=== PATIENT | male | born 1995 | race Caucasian/White ===

== ENCOUNTER 2019-01-04 17:25 | Emergency (ER) | payer SELFPAY ==
--- NOTE | 2019-01-04 18:06 | EDM.PDOC ---
ED HPI GENERAL MEDICAL PROBLEM - General Chief Complaint: Eye Problems Stated Complaint: METAL IN EYE Time Seen by Provider: 01/04/19 17:28 Source of Information: Reports: Patient History Limitations: Reports: No Limitations - History of Present Illness INITIAL COMMENTS - FREE TEXT/NARRATIVE: HISTORY AND PHYSICAL: History of present illness: Patient is a 23-year-old male who presents to the emergency room with concerns of a foreign body in the left eye. 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 Besides the irritation and discomfort he denies any visual changes.He does not wear contact lenses or corrective glasses. At the time he was not wearing any protective eyewear. Unsure of his last tetanus. Review of systems: As per history of present illness and below otherwise all systems reviewed and negative. Past medical history: As per history of present illness and as reviewed below otherwise noncontributory. Surgical history: As per history of present illness and as reviewed below otherwise noncontributory. Social history: See social history for further information Family history: As per history of present illness and as reviewed below otherwise noncontributory. Physical exam: General: Well-developed and well-nourished 23-year-old male. Alert and oriented. Nontoxic appearing and in no acute distress. HEENT: Atraumatic, normocephalic, pupils equal and reactive bilaterally, negative for conjunctival pallor or scleral icterus, pinpoint foreign body noted to the 5 o'clock position in the left sclera. Fluorescein eye exam shows abrasion to the 4:00 to 6 o'clock position. mucous membranes moist, TMs normal bilaterally, throat clear, neck supple, nontender, trachea midline. No drooling or trismus noted. No meningeal signs. No hot potato voice noted. Lungs: Clear to auscultation, breath sounds equal bilaterally, chest nontender. Heart: S1S2, regular rate and rhythm without overt murmur Abdomen: Soft, nondistended, nontender. Negative for masses or hepatosplenomegaly. Negative for costovertebral tenderness. Pelvis: Stable nontender. Genitourinary: Deferred. Rectal: Deferred. Skin: Intact, warm, dry. No lesions or rashes noted. Extremities: Atraumatic, negative for cords or calf pain. Neurovascular unremarkable. Neuro: Awake, alert, oriented. Cranial nerves II through XII unremarkable. Cerebellum unremarkable. Motor and sensory unremarkable throughout. Exam nonfocal. Notes: Visual acuity and I exam her completed. Patient is agreeable to updating his tetanus. Dr. Fitch, inspector materials and processes on-call at [facility] is agreeable to seeing this patient this evening at 7:[address] Ferrara states he will prescribe antibiotics as indicated after patient evaluation. This information was shared with the patient and is agreeable to plan of care. Supportive care measures were reviewed and discussed. Voices understanding and is agreeable to plan of care. Denies any further questions or concerns at this time. Diagnostics: None Therapeutics: Tdap, Tetracaine Prescription: None Impression: FB of Left Eye Plan: 1. Please go to [facility] to see Dr Ferrara, Opthomologist, across the bypass at [facility]. He will meet you at Door [address]. If for some reason you' re having trouble finding the door or need to contact Dr. fitch, his cell phone number is 2. Dr Ferrara will prescribe your antibiotics after evaluation. 3. Return to the ED as needed and as discussed. Definitive disposition and diagnosis as appropriate pending reevaluation and review of above. Left Eye Pain Score (Numeric/FACES): 2 - Related Data Allergies Allergy/AdvReac Type Severity Reaction Status Date / Time No Known Allergies Allergy Verified 01/04/19 18:01 Home Meds: Home Meds . [No Known Home Meds] 01/04/19 [History] ED ROS GENERAL - Review of Systems Review Of Systems: ROS reveals no pertinent complaints other than HPI. ED EXAM GENERAL W FULL EYE - Physical Exam Exam: See Below (See dictation) Course - Vital Signs Last Recorded V/S: Last Vital Signs Temp 97.1 F 01/04/19 18:02 Pulse 75 01/04/19 18:02 Resp 16 01/04/19 18:02 BP 128/76 01/04/19 18:02 Pulse Ox 96 01/04/19 18:02 - Orders/Labs/Meds Orders: Active Orders 24 hr Category Date Time Status Vaccines to be Administered [RC] PER UNIT ROUTINE Care 01/04/19 18:15 Ordered Meds: Medications Discontinued Medications Generic Name Dose Route Start Last Admin Trade Name Freq PRN Reason Stop Dose Admin Diphtheria/Tetanus/Acell Pertussis 0.5 ml 01/04/19 18:15 Adacel IM 01/04/19 18:16 .ONCE ONE Proparacaine HCl 1 ml 01/04/19 18:07 01/04/19 18:12 Proparacaine 0.5% Ophth Soln EYEBOTH 01/04/19 18:08 Not Given NOW STA Tetracaine HCl Confirm 01/04/19 18:11 01/04/19 18:15 Tetracaine 0.5% Steri-Unit Michell Administered 01/04/19 18:12 Not Given Dose 4 ml .ROUTE .STK-MED ONE Tetracaine HCl 4 ml 01/04/19 18:13 Tetracaine 0.5% Steri-Unit Michell EYELF 01/04/19 18:14 ASDIRECTED ONE Departure - Departure Time of Disposition: 18:23 Disposition: Home, Self-Care 01 Clinical Impression: Corneal abrasion Qualifiers: Encounter type: initial encounter Laterality: left Qualified Code(s): S05.02XA - Injury of conjunctiva and corneal abrasion without foreign body, left eye, initial encounter Corneal foreign body Qualifiers: Encounter type: initial encounter Laterality: left Qualified Code(s): T15.02XA - Foreign body in cornea, left eye, initial encounter - Discharge Information Referrals: PCP,Unknown [Primary Care Provider] - Forms: ED Department Discharge Additional Instructions: The following information is given to patients seen in the emergency department who are being discharged to home. This information is to outline your options for follow-up care. We provide all patients seen in our emergency department with a follow-up referral. The need for follow-up, as well as the timing and circumstances, are variable depending upon the specifics of your emergency department visit. If you don't have a primary care physician on staff, we will provide you with a referral. We always advise you to contact your personal physician following an emergency department visit to inform them of the circumstance of the visit and for follow-up with them and/or the need for any referrals to a consulting specialist. The emergency department will also refer you to a specialist when appropriate. This referral assures that you have the opportunity for follow-up care with a specialist. All of these measure are taken in an effort to provide you with optimal care, which includes your follow-up. Under all circumstances we always encourage you to contact your private physician who remains a resource for coordinating your care. When calling for follow-up care, please make the office aware that this follow-up is from your recent emergency room visit. If for any reason you are refused follow-up, please contact the [facility] Emergency Department at and asked to speak to the emergency department charge nurse. [address] [address] 1. Please go to [facility] to see Dr Ferrara, Opthomologist, across the highway[place]bypass at [facility]. He will meet you at Door [address] at 7:30pm. If for some reason you're having trouble finding the door or need to contact Dr. Fitch , his cell phone number is [phone]. 2[address] Ferrara will prescribe your antibiotics after evaluation. 3. Return to the ED as needed and as discussed. - My Orders Last 24 Hours: My Active Orders 01/04/19 18:15 Vaccines to be Administered [RC] PER UNIT ROUTINE - Assessment/Plan Last 24 Hours: My Active Orders 01/04/19 18:15 Vaccines to be Administered [RC] PER UNIT ROUTINE
[2019-01-04] MEDS ORDERED: Proparacaine 0.5% Ophth Soln 15 ML Bottle EYEBOTH STA (18:07)
[2019-01-04] MEDS ORDERED: Tetracaine HCl/PF 0.5% 4 ML Bottle ONE (18:11)
[2019-01-04] MEDS ORDERED: Tetracaine HCl/PF 0.5% 4 ML Bottle EYELF ONE (18:13)
[2019-01-04] MEDS ORDERED: Diphtheria,Pertussis(Acell),Tetanus Vaccine 0.5 ML Syringe IM ONE (18:15)
== END 2019-01-04 18:45 | disposition home or self-care (01) ==
LOC: MW.ED 17:25
DX: T15.02XA Foreign body in cornea, left eye, initial encounter (principal); Z23 Encounter for immunization; X58.XXXA Exposure to other specified factors, initial encounter
CPT/HCPCS: 90471; 90715; 99283